=== PATIENT | male | born 1975 | race Caucasian/White ===

== ENCOUNTER 2019-12-04 17:46 | Emergency (ER) | payer SELFPAY ==
[2019-12-04 17:49] VITALS: BP 147/85; PULSE 107; RESP 26; TEMP 38.1; O2SAT 97; BMI 28.1
--- NOTE | 2019-12-04 18:00 | XRR_ITS ---
PROCEDURE INFORMATION: Exam: XR Chest, 1 View Exam date and time: 12/04/2019 6:21 PM Age: 44 years old Clinical indication: Fever TECHNIQUE: Imaging protocol: XR of the chest Views: 1 view. COMPARISON: CR Chest 1 [place] [id number] 01/09/2013 3:03 PM FINDINGS: Lungs: There are some increased interstitial markings present in the left lower hemithorax, findings that could represent a left basilar atelectasis or pneumonitis. Pleural space: Unremarkable. No pleural effusion. No pneumothorax. Heart/Mediastinum: Unremarkable. No cardiomegaly. Bones/joints: Unremarkable. XR/XR chest 1V portable [id number] IMPRESSION: Increased linear opacities in the left lower hemithorax may represent left basilar atelectasis versus pneumonitis.
[2019-12-04 18:02] VITALS: BP 122/71; PULSE 91; RESP 18; O2SAT 99
--- NOTE | 2019-12-04 18:02 | ED_ITS ---
HPI - Fever General: Chief Complaint: Fever Stated Complaint: fever Time Seen by Provider: 12/04/19 18:00 Source: patient Mode of arrival: ambulatory Limitations: no limitations History of Present Illness: HPI Narrative: Patient presents with symptoms for 6 days. Patient has little cough some sinus drainage chills and a low-grade fever. Patient has taken care of himself for viral respiratory infection for the last 6 days with minimal to no relief. Patient denies any shortness of breath at this time. Patient was concerned he may have a tickborne illness due to the fact he has [place] and has picked off various ticks. Patient appears well. Patient appears in no pain. Patient is febrile at 100.5 in the emergency department. MD elicited complaint: fever Associated symptoms: Reports chills Review of Systems General: Reports: 10 or more systems reviewed and unremarkable except in HPI and below Const: Reports: fever(s), chills and body aches ENMT: Reports: nasal discharge Resp: Reports: non-productive cough Physical Exam Const: COMMON NORMALS: no acute distress and patient oriented x3 GENERAL APPEARANCE: cooperative HENMT: COMMON NORMALS: normocephalic, TM's normal bilaterally and Normal external nose present HEAD & SCALP: normal to inspection and normocephalic NOSE: Normal external nose present TYMPANIC MEMBRANE: TM's normal bilaterally MOUTH: Normal oral and palatal mucosa present THROAT: posterior oropharynx normal Eye: GENERAL EYE: appearance normal, both eyes and all related structures Neck/C-Spine: COMMON NORMALS: full ROM Lymph: LYMPHATIC: no lymphadenopathy noted Chest: COMMONS NORMALS: normal inspection of the chest Resp: COMMON NORMALS: normal respiratory effort EFFORT & INSPECTION: Yes able to speak in complete sentences Cardio: COMMON NORMALS: regular rate and regular rhythm RATE: regular rate RHYTHM: regular rhythm GI: COMMON NORMALS: non-tender : COMMON NORMALS: Yes no CVA tenderness BLADDER/KIDNEY EXAM: Yes no CVA tenderness Back/Pelvis: COMMON NORMALS: no CVA tenderness and thoracic and lumbar spine normal to inspection Extremity: COMMON NORMALS: normal to inspection Neuro: COMMON NORMALS: patient oriented x3 and moves all extremities Psych: COMMON NORMALS: mental status grossly normal and cooperative Skin: COMMON NORMALS: no rashes or lesions noted GENERAL SKIN EXAM: no rashes or lesions noted Course Vital Signs: Vital signs: Vital Signs Temperature 100.5 F H 12/04/19 17:49 Pulse Rate 88 12/04/19 18:54 Respiratory Rate 18 12/04/19 18:54 Blood Pressure 122/71 12/04/19 18:54 Pulse Oximetry 98 12/04/19 18:54 MDM - Fever MDM Narrative: Medical decision making narrative: 44-year-old male comes in today with fever and general complaints for the last 6 days. Patient appears mildly unwell. Respirations are even lungs are clear to auscultation. Abdomen soft nontender. Skin is warm and dry. Patient is moving oxygen well with that SaO2 of 98% on room air. Differential diagnosis includes but not limited to viral infection, pneumonia, urinary tract infection, tickborne illness. CBC was normal. Lactate was normal. CMP was insignificant. Outstanding labs will be a tick panel and a COVID-19 testing. Strep and flu were both negative. Chest x- ray noted patchy infiltrate to the left lower lung. Reviewed exam with patient recommended treatment for pneumonia with doxycycline. Recommended continue quarantine for 4 more days and as long as patient is fever free per recent CDC recommendations. Patient reports understanding of care plan and need for follow-up. Lab Data: Labs: Lab Results 12/04/19 12/04/19 12/04/19 Range/Units 18:36 18:36 18:38 WBC 8.8 (4.0-10.0) 10^3/ uL RBC 5.36 H (4.1-5.3) 10^6/u L Hgb 14.1 (11.7-16.6) g/dL Hct 44.1 (42.0-52.0) % MCV 82.3 (80-94) fL MCH 26.3 L (28.0-34.0) pg MCHC 32.0 (30.0-36.0) g/dL RDW 15.2 H (12.1-15.1) % Plt Count 225 (130-400) 10^3/c mm MPV 9.8 (7.4-10.4) fL Lymph % (Auto) Not Reportable [place] % (Auto) Not Reportable Lymph # (Auto) Not Reportable [place] # (Auto) Not Reportable Nucleated RBC % (a uto) 0 % Total Counted 100 (0-100) Atypical Lymphs % 9.0 H (0-5) % Absolute Neutrophi ls 4.2 (1.4-6.5) 10^3/c mm Segmented Neutroph ils 47 % Abs Segm Neuts (Ma n) 4.1 (1.6-7.1) 10/cmm Band Neutrophils 1.0 % Abs Band Neuts (Ma n) 0.1 (0.0-1.2) 10^3/c mm Absolute Lymphocyt es 3.9 H (1.2-3.4) 10^3/c mm Lymphocytes (Manua l) 35 % Monocytes (Manual) 7.0 % Absolute Monocytes 0.6 (0.1-0.6) 10^3/c mm Eosinophils (Manua l) 1 % Absolute Eosinophi ls 0.0 (0.0-0.7) 10^3/c mm Nucleated RBCs # 0.0 /100WBC Platelet Estimate Normal (Normal) Sodium Potassium Chloride Carbon Dioxide Anion Gap BUN Creatinine GFR Calculation Glucose Calculated Osmolal ity Lactic Acid Lactate (0.5-2.2) mmol/L Calcium Total Bilirubin AST ALT Alkaline Phosphata se Total Protein Albumin Globulin Urine Color (Yellow) Urine Appearance (CLEAR) Urine pH (5-7) Ur Specific Gravit y (1.005-1.030) Urine Protein (Negative) Urine Glucose (UA) (Normal) Urine Ketones (Negative) Urine Blood (Negative) Urine Nitrate (Negative) Urine Bilirubin (NEGATIVE) Urine Urobilinogen (Negative) mg/dL Ur Leukocyte Cara ase (Negative) Influenza Type A A g Negative (Negative) Influenza Type B A g Negative (Negative) Group A Strep Rapi d Negative (Negative) 12/04/19 12/04/19 12/04/19 Range/Units 18:38 18:38 19:35 WBC (4.0-10.0) 10^3/ uL RBC (4.1-5.3) 10^6/u L Hgb (11.7-16.6) g/dL Hct (42.0-52.0) % MCV (80-94) fL MCH (28.0-34.0) pg MCHC (30.0-36.0) g/dL RDW (12.1-15.1) % Plt Count (130-400) 10^3/c mm MPV (7.4-10.4) fL Lymph % (Auto) [place] % (Auto) Lymph # (Auto) [place] # (Auto) Nucleated RBC % (a uto) % Total Counted (0-100) Atypical Lymphs % (0-5) % Absolute Neutrophi ls (1.4-6.5) 10^3/c mm Segmented Neutroph ils % Abs Segm Neuts (Ma n) (1.6-7.1) 10/cmm Band Neutrophils % Abs Band Neuts (Ma n) (0.0-1.2) 10^3/c mm Absolute Lymphocyt es (1.2-3.4) 10^3/c mm Lymphocytes (Manua l) % Monocytes (Manual) % Absolute Monocytes (0.1-0.6) 10^3/c mm Eosinophils (Manua l) % Absolute Eosinophi ls (0.0-0.7) 10^3/c mm Nucleated RBCs # /100WBC Platelet Estimate (Normal) Sodium Cancelled 133 L Potassium Cancelled 4.3 Chloride Cancelled 98 Carbon Dioxide Cancelled 23 Anion Gap Cancelled 16.3 BUN Cancelled 12 Creatinine Cancelled 0.8 GFR Calculation Cancelled 106.0 Glucose Cancelled 98 Calculated Osmolal ity Cancelled 272 L Lactic Acid Cancelled Lactate (0.5-2.2) mmol/L Calcium Cancelled 8.8 Total Bilirubin Cancelled 0.2 AST Cancelled 17 ALT Cancelled 23 Alkaline Phosphata se Cancelled 57 Total Protein Cancelled 7.1 Albumin Cancelled 4.0 Globulin Cancelled 3.1 Urine Color (Yellow) Urine Appearance (CLEAR) Urine pH (5-7) Ur Specific Gravit y (1.005-1.030) Urine Protein (Negative) Urine Glucose (UA) (Normal) Urine Ketones (Negative) Urine Blood (Negative) Urine Nitrate (Negative) Urine Bilirubin (NEGATIVE) Urine Urobilinogen (Negative) mg/dL Ur Leukocyte Cara ase (Negative) Influenza Type A A g (Negative) Influenza Type B A g (Negative) Group A Strep Rapi d (Negative) 12/04/19 12/04/19 Range/Units 19:35 19:48 WBC (4.0-10.0) 10^3/ uL RBC (4.1-5.3) 10^6/u L Hgb (11.7-16.6) g/dL Hct (42.0-52.0) % MCV (80-94) fL MCH (28.0-34.0) pg MCHC (30.0-36.0) g/dL RDW (12.1-15.1) % Plt Count (130-400) 10^3/c mm MPV (7.4-10.4) fL Lymph % (Auto) [place] % (Auto) Lymph # (Auto) [place] # (Auto) Nucleated RBC % (a uto) % Total Counted (0-100) Atypical Lymphs % (0-5) % Absolute Neutrophi ls (1.4-6.5) 10^3/c mm Segmented Neutroph ils % Abs Segm Neuts (Ma n) (1.6-7.1) 10/cmm Band Neutrophils % Abs Band Neuts (Ma n) (0.0-1.2) 10^3/c mm Absolute Lymphocyt es (1.2-3.4) 10^3/c mm Lymphocytes (Manua l) % Monocytes (Manual) % Absolute Monocytes (0.1-0.6) 10^3/c mm Eosinophils (Manua l) % Absolute Eosinophi ls (0.0-0.7) 10^3/c mm Nucleated RBCs # /100WBC Platelet Estimate (Normal) Sodium Potassium Chloride Carbon Dioxide Anion Gap BUN Creatinine GFR Calculation Glucose Calculated Osmolal ity Lactic Acid Lactate 1.1 (0.5-2.2) mmol/L Calcium Total Bilirubin AST ALT Alkaline Phosphata se Total Protein Albumin Globulin Urine Color Yellow (Yellow) Urine Appearance Clear (CLEAR) Urine pH 7 (5-7) Ur Specific Gravit y 1.010 (1.005-1.030) Urine Protein Neg (Negative) Urine Glucose (UA) Norm (Normal) Urine Ketones Negative (Negative) Urine Blood Neg (Negative) Urine Nitrate Negative (Negative) Urine Bilirubin Neg (NEGATIVE) Urine Urobilinogen 1 H (Negative) mg/dL Ur Leukocyte Cara ase Negative (Negative) Influenza Type A A g (Negative) Influenza Type B A g (Negative) Group A Strep Rapi d (Negative) Discharge Plan Discharge Patient Disposition: Home Clinical Impression: Left lower lobe pneumonia Qualifiers: Pneumonia type: due to unspecified organism Qualified Code(s): J18.9 - Pneumonia, unspecified organism Condition: Stable Prescriptions: New doxycycline hyclate 100 mg capsule 100 mg PO BID 14 Days Qty: 28 RF: 0 Discharge Orders: Discharge Order (Routine); Ordered 12/04/19 Ordered By: Abel Crowley Discharge Diet: Usual diet Discharge Activity: Increase activity as tolerated Patient Instructions: Community-acquired Pneumonia (ED) Activity Restrictions/Additional Instructions: Drink plenty of fluids. Self quarantine until COVID results are are reported to you. It is recommended to quarantine for at least 10 days after onset of symptoms until you are fever free for 24 hours without medication use. Tick p alicia will take 5 to 7 days for results. Use acetaminophen and ibuprofen for pain and fever. Drink plenty of fluids. Follow-up with primary care as needed. Return to the emergency room for worsening difficulty breathing or new concerns. Coding Level of Care Code ED Retail Service Specialist for Dariela Alvarez Exam Comprehensive
[2019-12-04 18:51] LABS: Hematocrit 44.1 % (42.0-52.0); Hemoglobin 14.1 g/dL (11.7-16.6); Mean Corpuscular Hemoglobin 26.3 pg (28.0-34.0); Mean Corpuscular Volume 82.3 fL (80-94); Mean Platelet Volume 9.8 fL (7.4-10.4); Nucleated Red Blood Cells % 0 %; Platelet Count 225 10^3/cmm (130-400); Red Blood Count 5.36 10^6/uL (4.1-5.3); Red Cell Distribution Width 15.2 % (12.1-15.1); White Blood Count 8.8 10^3/uL (4.0-10.0)
[2019-12-04 18:54] VITALS: BP 122/71; PULSE 88; RESP 18; O2SAT 98
[2019-12-04] MEDS: ibuprofen 200 mg Tablet 400 MG PO (18:59)
--- NOTE | 2019-12-04 19:02 | PC.NURSE ---
Report received from KARLOS Hunter and care transferred to KARLOS Narayanan
[2019-12-04 19:23] LABS: Slide Review Slide Review Perform
[2019-12-04 19:29] LABS: Absolute Neutrophil 4.2 10^3/cmm (1.4-6.5); Absolute Segmented Neutrophil 4.1 10/cmm (1.6-7.1); Band Neutrophils Absolute 0.1 10^3/cmm (0.0-1.2); Eosinophils 1 %; Lymphocytes 35 %; Lymphocytes Absolute 3.9 10^3/cmm (1.2-3.4); Monocytes Absolute 0.6 10^3/cmm (0.1-0.6); Platelet Estimate Normal (Normal); Segmented Neutrophils 47 %; Total Cells Counted 100 (0-100)
[2019-12-04 19:42] LABS: Rapid Strep A Test Negative (Negative)
[2019-12-04 19:54] LABS: Influenza A by IFA Negative (Negative); Influenza B by IFA Negative (Negative)
[2019-12-04 20:01] LABS: Add Urine Microscopic? NO
[2019-12-04 20:07] LABS: Bilirubin Urine Neg (NEGATIVE); Blood Urine Neg (Negative); Glucose Urine UA Norm (Normal); Ketones Urine Negative (Negative); Leukocyte Esterase Urine Negative (Negative); Nitrate Urine Negative (Negative); Protein Urine Neg (Negative); Urine Appearance Clear (CLEAR); Urine Color Yellow (Yellow); Urobilinogen Urine 1 mg/dL (Negative); pH Urine 7 (5-7)
[2019-12-04 20:22] LABS: Alanine Aminotransferase 23 U/L (0-41); Alkaline Phosphatase 57 IU/L (40-130); Anion Gap 16.3 (5-19); Aspartate Amino Transferase 17 U/L (0-40); Blood Urea Nitrogen 12 mg/dL (6-20); Calcium 8.8 mg/dL (8.5-10.5); Carbon Dioxide 23 mmol/L (22-29); Chloride 98 mmol/L (98-107); Globulin 3.1 g/dL (1.3-4.6); Glucose 98 mg/dL (65-115); Osmolality Calculated 272 mOsm/kg (285-295); Potassium 4.3 mmol/L (3.5-5.1); Sodium 133 mmol/L (136-145); Total Bilirubin 0.2 mg/dL (0.15-1.2); Total Protein 7.1 g/dL (6.6-8.7)
[2019-12-04 20:23] LABS: Lactate (Lactic Acid level) 1.1 mmol/L (0.5-2.2)
[2019-12-04 20:59] VITALS: PULSE 79; RESP 15; O2SAT 97
[2019-12-04] MEDS: doxycycline 100 mg Tablet PO (20:59)
[2019-12-04 21:00] VITALS: BP 122/78; PULSE 78; RESP 14; O2SAT 96
[2019-12-04 21:56] LABS: Reflex Lactate Order REFLEX LACTIC ORDERD
--- NOTE | 2019-12-06 03:23 | PC.NURSE ---
Advised Dr. Munson of positive blood culture of gram + cocci. Dr. Munson reviewed patient visit and advised to wait for final blood culture result before taking further action
[2019-12-06 15:20] LABS: Quest SARS-CoV-2 RNA NOT DETECTED (NOT DETECTED)
[2019-12-07 12:15] LABS: Lyme AB Screen <0.90 index
[2019-12-09 17:01] LABS: E. Chaffeensis AB IGG <1:64; E. Chaffeensis AB IGM <1:20
[2019-12-09 17:29] LABS: RMSF IGG NOT DETECTED; RMSF IGM NOT DETECTED
== END 2019-12-04 20:58 | disposition home or self-care (01) ==
PROVIDERS: Emergency Provider Nurse Practitioner Family
DX: J18.9 Pneumonia, unspecified organism (principal)
CPT/HCPCS: 12345; 71045; 80053; 81003; 83605; 85007; 85025; 86618; 86666; 86757; 87040; 87081; 87205; 87635; 87804; 87880; 99284

== ENCOUNTER 2021-01-05 09:14 | Emergency (ER) | payer SELFPAY ==
[2021-01-05 09:40] VITALS: BP 135/89; PULSE 82; RESP 16; TEMP 36.7; O2SAT 99; BMI 28.4
[2021-01-05 09:53] VITALS: BP 135/89; PULSE 82; O2SAT 99
--- NOTE | 2021-01-05 10:09 | ED_ITS ---
HPI - Wound/Laceration General: Chief Complaint: Wound/Laceration Stated Complaint: mouth blisters Time Seen by Provider: 01/05/21 09:20 History of Present Illness: HPI narrative: Patient is a 45-year-old male who comes to the ED with dental pain. Patient says about 10 days ago he was brushing his teeth and cut his gums on the inside upper right molars. Since then he has had continued gingival swelling and pain in the upper right back jaw. Patient saw PCP yesterday and was put on a prescription of clindamycin to help with dental infection. Patient has not picked up his antibiotic prescription. He he states he will be calling a dentist to get an appointment set up. Associated symptoms: Denies chills, fever(s), nausea or vomiting Review of Systems Const: Denies: fever(s), chills or fatigue Eyes: Denies: change in vision or eye discomfort ENMT: Reports: dental pain; Denies: throat pain, odynophagia, nasal discharge or nasal congestion Card: Denies: chest pain, palpitations, edema, swelling of feet/ankles, dyspnea on exertion or orthopnea Resp: Denies: dyspnea, productive cough or non-productive cough GI: Denies: abdominal pain, nausea, vomiting, diarrhea, constipation or hematochezia : Denies: flank pain, difficulty urinating, dysuria or hematuria Musc: Denies: neck pain, back pain or extremity swelling Skin/Breast: Denies: rash or new lesions Neuro: Denies: headache(s), numbness in extremities or weakness in extremities PFS ED PFSH: Social History Smoking and tobacco status: current every day smoker Physical Exam Const: COMMON NORMALS: no acute distress, patient oriented x3 and alert GENERAL APPEARANCE: cooperative and comfortable HENMT: COMMON NORMALS: normocephalic HEAD & SCALP: normocephalic MOUTH: Normal oral and palatal mucosa present TEETH & GINGIVA: Yes gingiva abnormal (gingival edema around the upper right molars) edematous and tender THROAT: posterior oropharynx normal and uvula midline Eye: COMMON NORMALS: Equal, round and reactive pupils present PUPIL: Yes Equal, round and reactive pupils present Neck/C-Spine: COMMON NORMALS: supple GENERAL: Yes normal visual inspection Resp: COMMON NORMALS: normal respiratory effort, No retractions, No use of accessory muscles and clear to auscultation bilaterally AUSCULTATION: clear to auscultation bilaterally Cardio: COMMON NORMALS: regular rate, regular rhythm, S1 normal heart sound present, S2 normal heart sound present, No gallops present (Cardio), No clicks present (Cardio), No murmurs present (Cardio) and Peripheral pulses 2+ thr oughout RATE: regular rate RHYTHM: regular rhythm HEART SOUNDS: S1 normal heart sound present and S2 normal heart sound present PERIPHERAL PULSES: Peripheral pulses 2+ throughout GI: COMMON NORMALS: Normal to inspection, nondistended, normoactive bowel sounds present, Soft to palpation, non-tender and no masses PALPATION: Yes Soft to palpation : COMMON NORMALS: Yes no CVA tenderness BLADDER/KIDNEY EXAM: Yes no CVA tenderness Back/Pelvis: COMMON NORMALS: no CVA tenderness Extremity: COMMON NORMALS: normal to inspection Neuro: COMMON NORMALS: patient oriented x3 and moves all extremities SENSORIUM/ORIENTATION: Yes alert Skin: GENERAL SKIN EXAM: dry skin Course Vital Signs: Vital signs: Vital Signs Temperature 98.1 F 01/05/21 09:40 Pulse Rate 82 01/05/21 09:53 Respiratory Rate 16 01/05/21 09:40 Blood Pressure 135/89 01/05/21 09:53 Pulse Oximetry 99 01/05/21 09:53 MDM - Wound/Laceration MDM Narrative: Medical decision making narrative: Patient is a 45-year-old male comes to the ED with some dental pain and gingival edema. Vitals are stable and patient appears nontoxic. He was seen by his PCP yesterday and put on a prescription for clindamycin. He has not picked up his prescription yet. Exam showed some gingival edema and tenderness in the upper right molar region. Patient diagnosed with dental infection and told to get his clindamycin prescription filled today and start taking it. He was also told to contact a dentist to set up an appointment with him for reevaluation. Return ED precautions given. Patient understood and agree with plan. Discharge Plan Discharge Patient Disposition: Home Clinical Impression: Dental infection Condition: Stable Prescriptions: No Action clindamycin HCl 150 mg capsule 450 mg PO TID 7 Days Qty: 63 RF: 0 Discharge Orders: Discharge ED (Routine); Ordered 01/05/21 Ordered By: Dante Wolfe Referrals: Kevin Medina MD [Primary Care Provider] - Discharge Diet: Regular Discharge Activity: Resume usual activity Patient Instructions: Dental Abscess (ED), Dental Caries (ED) Activity Restrictions/Additional Instructions: Follow-up with medical provider as directed. Contact a dentist and set up an appoint with them for further evaluation. Make sure to fill your previously prescribed prescription for antibiotic. take medications as prescribed. Take [id number] Tylenol or Motrin per bottle instruction for pain. Return to the ER or your medical provider if condition worsens. Please read and understand discharge instructions. Thank you for choosing [facility] for your healthcare needs today. Please realize this is an emergency room and that we are providing you with a medical screening exam and this may not be complete and all inclusive of all the testing and or work up that you may need to determine your ailment or severity of your illness. It is very important that you follow up as instructed or that you return to the Emergency Department should you have concerns or if your condition changes or worsens in any way. Coding Level of Care Code ED Tool Design Engineer for Dariela Fwd Exam Comprehensive
[2021-01-05] MEDS: HYDROcodone-acetaminophen 7.5-325 mg Tablet 1 TAB PO (10:40)
== END 2021-01-05 10:48 | disposition home or self-care (01) ==
PROVIDERS: Emergency Provider Physician Assistant; PCP Family Medicine
DX: K04.7 Periapical abscess without sinus (principal); F17.210 Nicotine dependence, cigarettes, uncomplicated
CPT/HCPCS: 99283

== ENCOUNTER 2021-12-16 20:27 | Emergency (ER) | payer SELFPAY ==
--- NOTE | 2021-12-16 20:32 | USR_ITS ---
PROCEDURE INFORMATION: Exam: US Scrotum and US Duplex Artery and Vein, Scrotum, Complete Exam date and time: 12/16/2021 9:05 PM Age: 46 years old Clinical indication: Scrotum pain; Additional info: Testicle pain TECHNIQUE: Imaging protocol: Real-time ultrasound of the scrotum. Real-time duplex ultrasound scan of the arterial and venous flow of the scrotum with B-mode, color Doppler flow and spectral waveform analysis. Complete exam. Duplex images required to evaluate vascular conditions. COMPARISON: No relevant prior studies available. FINDINGS: Right: The right testicle measures 48 x 27 x 36 mm, estimated volume 24.6 cc. No visible intratesticular mass. Duplex Doppler evaluation, with color flow and spectral waveform analysis, demonstrates intratesticular arterial and venous blood flow. 10 x 5 x 5 mm cyst in the head of the right epididymis. The right epididymis appears mildly enlarged and shows slightly increased blood flow relative to the left epididymis. While not conclusive, this appearance suggests possible right epididymitis. Please correlate clinically. There is a small amount of right scrotal fluid. Left: The left testicle measures 48 x 32 x 34 mm, estimated volume 27.1 cc. No visible intratesticular mass. Duplex Doppler evaluation, with color flow and spectral waveform analysis, demonstrates intratesticular arterial and venous blood flow. The left epididymis is normal in size and appearance. There is a small amount of left scrotal fluid. US/US scrotum [id number] IMPRESSION: 1. Technologist notes somewhat limited exam, as patient was unable to tolerate exam due to pain. 2. Findings that raise suspicion for possible right epididymitis, see above discussion. 3. No evidence for torsion by Doppler ultrasound. 4. Small bilateral hydroceles. 5. Other details discussed above.
[2021-12-16 20:38] VITALS: BP 140/87; PULSE 96; RESP 16; TEMP 37.5; O2SAT 99
--- NOTE | 2021-12-16 21:35 | ED_ITS ---
HPI - Male Genitourinary General: Chief complaint: Urogenital-Male Stated complaint: Testical Pain Time Seen by Provider: 12/16/21 21:16 Source: patient Mode of arrival: ambulatory Limitations: no limitations History of Present Illness: 46-year-old male who states has been having right testicle pain and swelling over the last 7 days. He states his pain is been worsening and sharp in nature rates his pain a 7 out of 10 much worse with movement had some dysuria as well. Denies any penile discharge denies any fever denies any abdominal pain or vomiting. Associated symptoms: Deny nausea or vomiting Review of Systems Const: Denies: fever(s), chills, body aches or change in appetite Eyes: Denies: blurry vision or eye discomfort ENMT: Denies: throat pain or dental pain Card: Denies: chest pain Resp: Denies: dyspnea GI: Denies: abdominal pain, nausea, vomiting or diarrhea : Reports: testicular pain and scrotal swelling Musc: Denies: neck pain or back pain Skin/Breast: Denies: rash Neuro: Denies: headache(s) Psych: Denies: depression Axel/Lymph: Denies: easy bruising All/Imm: Denies: urticaria PFSH ED PFSH: Medical History (Updated 12/16/21 @ 22:34 by Lissa Clement MD) No pertinent past medical history Social History Smoking and tobacco status: current every day smoker Physical Exam Const: COMMON NORMALS: no acute distress, patient oriented x3 and healthy appearing HENMT: COMMON NORMALS: normocephalic and atraumatic HEAD & SCALP: normocephalic and atraumatic Eye: COMMON NORMALS: conjunctivae normal CONJUNCTIVA: Yes conjunctivae normal Neck/C-Spine: COMMON NORMALS: full ROM and supple Chest: COMMONS NORMALS: normal inspection of the chest Resp: COMMON NORMALS: normal respiratory effort Cardio: COMMON NORMALS: regular rate, regular rhythm and No murmurs present (Cardio) RATE: regular rate RHYTHM: regular rhythm GI: COMMON NORMALS: Normal to inspection, nondistended, normoactive bowel sounds present, Soft to palpation, non-tender and no masses INSPECTION: Yes normal to inspection PALPATION: Yes Soft to palpation : OTHER: Swelling and tenderness noticed to right testicle Extremity: COMMON NORMALS: normal to inspection and full ROM Neuro: COMMON NORMALS: patient oriented x3, moves all extremities and no focal motor deficits Psych: COMMON NORMALS: mental status grossly normal, Normal thought process present and cooperative THOUGHT PROCESS: Normal thought process present Skin: COMMON NORMALS: no rashes or lesions noted and no wounds GENERAL SKIN EXAM: no rashes or lesions noted Course Vital Signs: Vital signs: Vital Signs Temperature 99.5 F 12/16/21 20:38 Pulse Rate 96 12/16/21 20:38 Respiratory Rate 16 12/16/21 20:38 Blood Pressure 140/87 12/16/21 20:38 Pulse Oximetry 99 12/16/21 20:38 Oxygen Delivery Me thod 12/16/21 20:38 MDM - Male Medical Decision Making Patient presents here with testicle swelling and pain ultrasound shows likely epididymitis he has no signs of torsion he had good blood flow we will start him on antibiotics along with pain meds get him follow-up with urology he is return if worsening he understands agrees to plan. Lab Data Radiology Impressions Scrotum Ultrasound 12/16/21 20:32 IMPRESSION: 1. Technologist notes somewhat limited exam, as patient was unable to tolerate exam due to pain. 2. Findings that raise suspicion for possible right epididymitis, see above discussion. 3. No evidence for torsion by Doppler ultrasound. 4. Small bilateral hydroceles. 5. Other details discussed above. Discharge Plan Discharge Patient Disposition: Home Clinical Impression: Epididymitis Condition: Stable Prescriptions: New hydrocodone-acetaminophen 5-325 mg tablet 1 tab PO Q6H PRN (Reason: pain) Qty: 14 0RF doxycycline hyclate 100 mg capsule 100 mg PO BID 10 Days Qty: 20 0RF No Action clindamycin HCl 150 mg capsule 450 mg PO TID 7 Days Qty: 63 0RF Discharge Orders: Discharge ED (Routine); Ordered 12/16/21 Ordered By: Lissa Clement Referrals: Devin Gutierrez MD [Physician] - 1-3 days Kevin Medina MD [Primary Care Provider] - Discharge Diet: Advance as tolerated Discharge Activity: Resume usual activity Patient Instructions: Epididymitis (ED), Opioid Safety Coding Level of Care Code ED Entertainment & Media Correspondent for Chg Fwd Exam Comprehensive
[2021-12-16] MEDS: ondansetron 2 mg/ML SDV 2 mL 4 MG IM (21:54)
[2021-12-16] MEDS: HYDROmorphone 1 mg/mL INJ 1 mL IM (21:58)
[2021-12-16 22:42] LABS: Add Urine Microscopic? YES; Bilirubin Urine Neg (Negative); Blood Urine 2+ (Negative); Glucose Urine UA Norm (Normal); Ketones Urine 1+ (Negative); Leukocyte Esterase Urine Negative (Negative); Nitrate Urine Negative (Negative); Protein Urine Neg (Negative); Urine Appearance Clear (CLEAR); Urine Color Yellow (Yellow); Urobilinogen Urine Neg (Negative); pH Urine 5 (5-7)
[2021-12-16 22:43] LABS: Squamous Epithelial Cell Urine 0-4 /hpf (0-5)
[2021-12-16 22:44] LABS: Add Urine Culture? No; Bacteria Urine TRACE /hpf
[2021-12-16 23:10] VITALS: BP 126/87; PULSE 90; RESP 14; O2SAT 96
[2021-12-16] MEDS: doxycycline 100 mg Tablet PO (23:18)
[2021-12-16] MEDS: HYDROcodone-acetaminophen 5-325 mg Tablet 1 TAB PO (23:19)
[2021-12-16 23:46] VITALS: BP 126/87; PULSE 90; RESP 14; O2SAT 96
--- NOTE | 2021-12-18 16:31 | DCPLANNER ---
Addendum entered by Deneen Hartman 12/21/21 16:42: Patient had a follow up appointment scheduled with urology - appointment cancelled. Original Note: email manager had message to schedule a follow up appointment for patient with urology. Case manger sent patients information to the front office staff at urology. Patients information will be printed and reviewed. Clinic will call patient with appointment information.
== END 2021-12-16 23:50 | disposition home or self-care (01) ==
PROVIDERS: Emergency Provider Emergency Medicine; PCP Family Medicine
DX: N45.1 Epididymitis (principal); F17.210 Nicotine dependence, cigarettes, uncomplicated
CPT/HCPCS: 76870; 81001; 96372; 99284; J0696; J1170; J2405

== ENCOUNTER 2023-05-27 12:45 | Emergency (ER) | payer SELFPAY ==
[2023-05-27 13:14] VITALS: BP 153/95; PULSE 80; RESP 16; TEMP 36.7; O2SAT 99; BMI 26.6
--- NOTE | 2023-05-27 15:35 | ED_ITS ---
HPI - Extremity Problem General: Chief complaint: Extremity Injury, Lower Stated complaint: leg pain, Right Time Seen by Provider: 05/27/23 15:13 [facility] ED PFSH: Medical History (Updated 12/24/21 @ 00:01 by DEA Martinez) No pertinent past medical history Social History Smoking and tobacco/nicotine status: current every day tobacco/nicotine user Course Vital Signs: Vital signs: Vital Signs Temperature 98.0 F 05/27/23 13:14 Pulse Rate 80 05/27/23 13:14 Respiratory Rate 16 05/27/23 13:14 Blood Pressure 153/95 05/27/23 13:14 Pulse Oximetry 99 05/27/23 13:14 Oxygen Delivery Me thod Room Air 05/27/23 13:14 Discharge Plan Discharge Condition: Stable Prescriptions: No Action clindamycin HCl 150 mg capsule 450 mg PO TID 7 Days Qty: 63 0RF hydrocodone-acetaminophen 5-325 mg tablet 1 tab PO Q6H PRN (Reason: pain) Qty: 14 0RF Referrals: Kevin Medina MD [Primary Care Provider] - Coding Level of Care Code 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
[2023-05-27] MEDS: dexamethasone 10 mg/mL INJ IM (15:53)
[2023-05-27] MEDS: ketorolac 30 mg/mL INJ IVP (15:53)
[2023-05-27] MEDS: orphenadrine 30 mg/mL Inj 2 mL 60 MG IVP (15:53)
--- NOTE | 2023-05-27 17:34 | ED_ITS ---
HPI - Back Pain/Injury General: Chief Complaint: Extremity Injury, Lower Stated Complaint: leg pain, Right Time Seen by Provider: 05/27/23 15:13 Source: patient Mode of arrival: ambulatory History of Present Illness: 47-year-old male presents emergency room planing of back pain with pain radiating down the right leg from the buttock lateral thigh down to the anterior lower leg and ankle. He has noticed she is having difficulty with dorsiflexion of the ankle. No direct injury to the back he thinks this began after he was doing some lifting and twisting at work. MD elicited complaint: back pain Pertinent past history: prior back pain Onset (ago): day(s) Timing: constant Similar Symptoms Previously: Yes Quality: sharp Location: lumbar spine Radiation: right upper leg and right leg below the knee Exacerbating factors: sitting upright and walking Relieving factors: supine Context: while lifting Associated symptoms: Deny abdominal pain, arthralgias, chills, change in bowel habits, difficulty walking, dysuria, fatigue, fecal incontinence, fever(s), hematuria, myalgias, nausea, numbness, syncope, tingling/numbness/burning, urinary frequency, urinary urgency, vomiting or weakness Work related injury: Yes Review of Systems Const: Denies: fever(s), chills or fatigue Card: Denies: chest pain or syncope Resp: Denies: dyspnea GI: Denies: abdominal pain, nausea, vomiting, fecal incontinence or change in bowel habits : Denies: dysuria, urinary frequency, urinary urgency or hematuria Musc: Reports: back pain and extremity pain; Denies: neck pain Skin/Breast: Denies: rash Neuro: Denies: difficulty walking [facility] ED PFSH: Medical History No pertinent past medical history Social History Smoking and tobacco/nicotine status: current every day tobacco/nicotine user Physical Exam Const: COMMON NORMALS: no acute distress GENERAL APPEARANCE: cooperative and comfortable ORIENTATION/CONSCIOUSNESS: Yes awake, Yes oriented to person, Yes oriented to place and Yes oriented to time HENMT: COMMON NORMALS: normocephalic, atraumatic and hearing grossly normal bilaterally HEAD & SCALP: normocephalic and atraumatic Resp: COMMON NORMALS: normal respiratory effort, No retractions, No use of accessory muscles and clear to auscultation bilaterally AUSCULTATION: clear to auscultation bilaterally Cardio: COMMON NORMALS: regular rate, regular rhythm and No murmurs present (Cardio) RATE: regular rate RHYTHM: regular rhythm GI: COMMON NORMALS: Soft to palpation and No hepatosplenomegaly present AUSCULTATION: Yes normoactive bowel sounds PALPATION: Yes Soft to palpation, No Tenderness to palpation present (GI), No Guarding due to palpation present (GI) and Yes No hepatosplenomegaly present Extremity: COMMON NORMALS: normal to inspection, capillary refill normal, no clubbing, cyanosis or edema, no calf tenderness and no pedal edema Neuro: SENSORIUM/ORIENTATION: Yes oriented to person, Yes oriented to place and Yes oriented to time Skin: COMMON NORMALS: no rashes or lesions noted GENERAL SKIN EXAM: no rashes or lesions noted Course Vital Signs: Vital signs: Vital Signs Temperature 98.0 F 05/27/23 13:14 Pulse Rate 80 05/27/23 13:14 Respiratory Rate 16 05/27/23 13:14 Blood Pressure 153/95 05/27/23 13:14 Pulse Oximetry 99 05/27/23 13:14 Oxygen Delivery Me thod Room Air 05/27/23 13:14 MDM - Back Pain/Injury Medical Decision Making No red flag symptoms. Deep tendon reflexes in the lower extremities normal sensation normal weakness in the dorsiflexion of the right leg. Will discharge patient home on steroid taper tizanidine and diclofenac to set up outpatient MRI and follow-up with neurosurgery return if has further problems. Medical Records I reviewed the patient's medical records. Labs I reviewed the patient's lab results. No radiology studies performed this visit Discharge Plan Discharge Patient Disposition: Home Clinical Impression: Lumbar radicular pain Condition: Stable Prescriptions: New tizanidine 4 mg tablet 4 mg PO Q6H PRN (Reason: muscle spasticity) Qty: 20 0RF Rx Instructions: do not exceed 3 doses per 24 hrs prednisone 20 mg tablet 20 mg PO TID Qty: 15 0RF Rx Instructions: 1 p.o. 3 times daily x3 days, 1 p.o. twice daily x2 days, 1 p.o. daily x2 days diclofenac sodium 75 mg tablet,delayed release (DR/EC) 75 mg PO Q12H PRN (Reason: pain) Qty: 20 0RF No Action clindamycin HCl 150 mg capsule 450 mg PO TID 7 Days Qty: 63 0RF hydrocodone-acetaminophen 5-325 mg tablet 1 tab PO Q6H PRN (Reason: pain) Qty: 14 0RF Discharge Orders: Discharge ED (Routine); Ordered 05/27/23 Ordered By: Richard Burrows Referrals: Kevin Medina MD [Primary Care Provider] - Discharge Diet: Usual diet Discharge Activity: Increase activity as tolerated Patient Instructions: Lumbar Radiculopathy (ED), Opioid Safety, Pain Management Activity Restrictions/Additional Instructions: Thank you for choosing [facility] for your healthcare needs today. Please realize this is an emergency room and that we are providing you with a medical screening exam and this may not be complete and all inclusive of all the testing and or work up that you may need to determine your ailment or severity of your illness. It is very important that you follow up as instructed or that you return to the Emergency Department should you have concerns or if your condition changes or worsens in any way. You are seen in the emergency room for right leg radicular pain. Suspect the discomfort is due to an impinged nerve in your back putting pain radiating down your leg which is also causing the weakness in your ankle. Case management will make arrangements for you to have an outpatient MRI of your lumbar spine and a follow-up with Dr. Leal. 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
== END 2023-05-27 16:30 | disposition home or self-care (01) ==
PROVIDERS: Emergency Provider Family Medicine; PCP Family Medicine
DX: M54.16 Radiculopathy, lumbar region (principal); Z72.0 Tobacco use
CPT/HCPCS: 96372; 96374; 96375; 99284; J1100; J1885; J2360

== ENCOUNTER 2023-06-02 12:16 | Emergency (ER) | payer SELFPAY ==
[2023-06-02 12:30] VITALS: BP 156/88; PULSE 80; RESP 12; TEMP 36.7; O2SAT 98; BMI 27.1
--- NOTE | 2023-06-02 13:35 | W.ED.BACK ---
HPI - Back Pain/Injury General: Chief Complaint: Back Pain/Injury Stated Complaint: right side back pain Time Seen by Provider: 06/02/23 13:28 History of Present Illness: 47-year-old male patient comes in today with complaints of pain with numbness and tingling going down his right leg to his feet. Patient reports numbness in his toes. Patient reports that injury at work about 1 month ago where he slipped and fell. Patient was seen last week and was treated for radiculitis with steroids, anti-inflammatories, and muscle relaxer. Patient reports no significant improvement but no worsening of symptoms. Patient denies any loss of bowel or bladder control. Patient reports no fever or chills. Patient is scheduled appointment for follow-up with orthopedic customer management specialist on 14 June. Patient comes in due to not being able to work at his job and is needing an excuse. Review of Systems General: Reports: 10 or more systems reviewed and unremarkable except in HPI and below Musc: Reports: back pain [facility] ED PFSH: Medical History No pertinent past medical history Social History Smoking and tobacco/nicotine status: current every day tobacco/nicotine user Physical Exam Const: COMMON NORMALS: alert HENMT: COMMON NORMALS: normocephalic HEAD & SCALP: normocephalic Neck/C-Spine: COMMON NORMALS: full ROM Resp: COMMON NORMALS: normal respiratory effort and clear to auscultation bilaterally AUSCULTATION: clear to auscultation bilaterally Cardio: COMMON NORMALS: regular rate RATE: regular rate Back/Pelvis: SACROILIAC JOINTS: Yes SI joint(s) abnormal (Tenderness along the right sacroiliac.) SI joint details: tender to palpation Neuro: SENSORIUM/ORIENTATION: Yes alert Skin: COMMON NORMALS: turgor normal GENERAL SKIN EXAM: turgor normal Course Vital Signs: Vital signs: Vital Signs Temperature 98.1 F 06/02/23 12:30 Pulse Rate 80 06/02/23 12:30 Respiratory Rate 12 06/02/23 12:30 Blood Pressure 156/88 06/02/23 12:30 Pulse Oximetry 98 06/02/23 12:30 Oxygen Delivery Me thod Room Air 06/02/23 12:30 MDM - Back Pain/Injury Medical Decision Making 47-year-old male patient comes in today with lower back pain radiating down the right lower extremity. Patient reports no worsening of symptoms but no improvement since his last visit to the emergency department. Patient is awaiting follow-up with orthopedic spine. Patient denies any loss of bowel or bladder control. Vital signs are normal. Differential diagnosis include intervertebral disc disease, facet arthropathy, lumbar radiculopathy. No cauda equina symptoms were noted at this time. Patient does definitely have some lumbar radiculopathy and concern for impingement of the nerve pathway. Recommended continuing treatment plan and following up as scheduled. Patient was requesting work excuse until his follow-up appointment on the second. Patient was excused from work and recommended contacting Workmen's Comp. specialist for further medications and treatment plans. No radiology studies performed this visit Discharge Plan Discharge Patient Disposition: Home Clinical Impression: Lumbar radiculopathy Condition: Stable Prescriptions: No Action clindamycin HCl 150 mg capsule 450 mg PO TID 7 Days Qty: 63 0RF tizanidine 4 mg tablet 4 mg PO Q6H PRN (Reason: muscle spasticity) Qty: 20 0RF Rx Instructions: do not exceed 3 doses per 24 hrs prednisone 20 mg tablet 20 mg PO TID Qty: 15 0RF Rx Instructions: 1 p.o. 3 times daily x3 days, 1 p.o. twice daily x2 days, 1 p.o. daily x2 days diclofenac sodium 75 mg tablet,delayed release (DR/EC) 75 mg PO Q12H PRN (Reason: pain) Qty: 20 0RF hydrocodone-acetaminophen 5-325 mg tablet 1 tab PO Q6H PRN (Reason: pain) Qty: 14 0RF Discharge Orders: Discharge ED (Routine); Ordered 06/02/23 Ordered By: Abel Crowley Referrals: Kevin Medina MD [Primary Care Provider] - Discharge Diet: Usual diet Discharge Activity: Increase activity as tolerated Patient Instructions: Lumbar Radiculopathy (ED) Activity Restrictions/Additional Instructions: Try to maintain activity is much as possible. Gentle stretching and range of motion exercises. Ice and heat to the low back to help with pain and discomfort. Drink plenty of water. Follow-up with Workmen's Comp. specialist regarding further evaluation and treatment. Keep appointment as scheduled for 14 June. 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
[2023-06-02 13:54] VITALS: PULSE 76; RESP 16; O2SAT 98
== END 2023-06-02 13:55 | disposition home or self-care (01) ==
PROVIDERS: Emergency Provider Nurse Practitioner Family; PCP Family Medicine
DX: M54.16 Radiculopathy, lumbar region (principal); Z72.0 Tobacco use
CPT/HCPCS: 99281

== ENCOUNTER → 2023-07-09 08:24 | Outpatient (BNVA) | payer OTHER, SELFPAY | PROVIDERS: PCP Family Medicine; Visit Provider Orthopaedic Surgery | DX: M48.062 Spinal stenosis, lumbar region with neurogenic claudication | CPT/HCPCS: 72110 ==

== ENCOUNTER → 2023-08-13 10:23 | Outpatient (BNVA) | payer OTHER, SELFPAY | PROVIDERS: PCP Family Medicine; Visit Provider Anesthesiology Pain Medicine | DX: M47.892 Other spondylosis, cervical region (principal); M54.2 Cervicalgia; G89.29 Other chronic pain | CPT/HCPCS: 72040 ==

== ENCOUNTER 2023-09-11 14:03 | Outpatient (CLI) | payer OTHER, SELFPAY ==
--- NOTE | 2023-09-11 14:30 | MR_ITS ---
WS: [id number] MRI LUMBAR SPINE NONCONTRAST HISTORY: back pain COMPARISON: None available. TECHNIQUE: Sagittal and axial multisequence imaging is submitted. Small central disc protrusions in the cervical spine from C3-4 through C6-7. Mild straightening of the normal lumbar lordosis. No acute fractures. There is a very small amount of marrow edema along the superior endplate of L5. Marrow edema is greater on the LEFT and extends into the pedicle. There is a small amount of edema in the posterior inferior L4 vertebral body also on th e LEFT. Mild disc base narrowing and desiccation at L4-5. Conus terminates normally at L1-2 disc level. L1-L2: Normal. L2-L3: Mild disc bulging and ligamentum flavum and facet arthritis. No stenosis. L3-L4: Mild asymmetric disc bulging. Broad-based disc protrusion on the RIGHT extending from the para central location into the foramen. Osteophytic ridging is also present. Moderate facet and ligamentum flavum arthropathy. There is disc contacting the traversing RIGHT L4 nerve root and also the exiting RIGHT L3 nerve root. Mild contact on the LEFT nerve root also. L4-L5: Diffuse annular disc bulging. Disc is diffusely bulging extending into the foramina causing co mplete effacement of fat. Marked ligamentum flavum and facet arthritis. Mild subarticular recess encr oachment. Mild central and bilateral subarticular recess stenosis. Moderate to severe bilateral nabeel inal stenosis. Greater on the LEFT than the RIGHT. L5-S1: Diffuse annular disc bulging. Greater disc bulging to the RIGHT. No contact on the S1 nerve ro ots. Disc does contact the exiting RIGHT L5 nerve root and to a lesser extent the exiting LEFT L5 ner ve root. Facet joint arthritis. Fluid in the facet joints. Paravertebral soft tissues are negative. MR/MR lumbar spine wo con* [id number] IMPRESSION: 1. L4-5: Diffuse disc bulging resulting in mild central, bilateral subarticula r recess with moderate to severe bilateral foraminal stenosis, greater on the L EFT. Significant contact on the exiting nerve roots. Additional facet joint art hritis. 2. L5-S1: Disc bulging extends greatest to the RIGHT with contact on the RIGHT exiting L5 nerve root. Lesser disc contact on the exiting LEFT L5 nerve root. 3. L3-4: Asymmetric disc bulging with a broad-based protrusion on the RIGHT. D isc contacts the traversing RIGHT L4 nerve root and also the exiting RIGHT L3 n erve root. 4. Small amount of marrow edema involving the L4 and L5 endplates on the LEFT with marrow edema extending into the RIGHT pedicle. No fracture.
== END 2023-09-11 14:04 | disposition home or self-care (01) ==
LOC: RAD 14:04
PROVIDERS: PCP Family Medicine; Visit Provider Orthopaedic Surgery
DX: M54.9 Dorsalgia, unspecified (principal); M51.36 Other intervertebral disc degeneration, lumbar region; M51.37 Other intervertebral disc degeneration, lumbosacral region
CPT/HCPCS: 72148

== ENCOUNTER 2023-12-06 14:19 | Emergency (ER) | payer OTHER, SELFPAY ==
[2023-12-06 14:22] VITALS: BP 134/88; PULSE 96; RESP 18; TEMP 37.1; O2SAT 95; BMI 28.0
--- NOTE | 2023-12-06 14:29 | CT_ITS ---
WS: [id number] CT HEAD NONCONTRAST HISTORY: Left-sided facial numbness TECHNIQUE: Contiguous axial imaging performed through the brain in 2.5 mm imaging. Bone and soft tiss ue windows. Sagittal and coronal reformats reviewed. All CT scans at [facility] use at least one of these dose optimization techniques: automated exposure control; mA and/or kV adjustment per pa tient size (includes targeted exams where dose is matched to clinical indication); or iterative recon struction. DLP: 1063.48 mGy.cm COMPARISON: 01/19/2013 No acute intracranial hemorrhage, midline shift or mass effect. No atrophy or prior infarcts or herniation. Ventricles: Normal size with no hydrocephalus. Paranasal sinuses: As visualized are clear. Mastoid air cells: Well pneumatized. Calvarium and scalp: Skull is intact with no soft tissue edema or swelling. CT/CT head wo con* [id number] IMPRESSION: Negative head CT.
--- NOTE | 2023-12-06 14:29 | XR_ITS ---
WS: [id number] XR chest 1V portable [id number] REASON FOR EXAM: Chest pain FINDINGS: Chest is similar to previous examination 12/04/2019. The heart and mediastinum are within normal limits. Calcified granulomatous disease is seen in both hemithoraces. No acute pulmonary parenchymal or pleural abnormality is identified. No abnormality is seen in the le ft lower lung as Moderate degenerative spondylosis in the lower thoracic spine. XR/XR chest 1V portable [id number] IMPRESSION: Stable chest without acute abnormality.
--- NOTE | 2023-12-06 14:31 | W.ED.CHESTPA ---
HPI - Chest Pain General: Chief Complaint: Chest Pain Stated Complaint: chest pain Time Seen by Provider: 12/06/23 14:26 History of Present Illness: 48-year-old man with a history of hypertension reports to the emergency room by ambulance. He reports that he has had a stroke in the past but does not have any apparent residual deficits. He says this morning he awoke with some chest discomfort. He felt pressure in his chest. He then went out to mow his yard at which time he developed a severe chest pressure. This has since become somewhat better. No known cardiac history. No nausea or vomiting. No altered mental status. No focal motor deficits. No abdominal pain. No lower extremity swelling. He also complains of some numbness in his left face. Review of Systems Narrative: Constitutional symptoms: Negative except as documented in HPI. Skin symptoms: Negative except as documented in HPI. Eye symptoms: Negative except as documented in HPI. ENMT symptoms: Negative except as documented in HPI. Respiratory symptoms: Negative except as documented in HPI. Cardiovascular symptoms: Negative except as documented in HPI. Gastrointestinal symptoms: Negative except as documented in HPI. Genitourinary symptoms: Negative except as documented in HPI. Musculoskeletal symptoms: Negative except as documented in HPI. Neurologic symptoms: Negative except as documented in HPI. Psychiatric symptoms: Negative except as documented in HPI. Endocrine symptoms: Negative except as documented in HPI. [facility] ED PFSH: Medical History No pertinent past medical history Social History Smoking and tobacco/nicotine status: current every day tobacco/nicotine user Physical Exam Narrative: EXAM NARRATIVE: General: Alert, no acute distress. Skin: Warm, dry. Head: Normocephalic, atraumatic. Neck: Supple, trachea midline. Eye: Extraocular movements are intact. Ears, nose, mouth and throat: mucosa moist. Cardiovascular: Regular, Normal peripheral perfusion. Respiratory: Lungs are clear to auscultation, respirations are non-labored, breath sounds are equal, Symmetrical chest wall expansion. Gastrointestinal: Soft, Nontender, Non distended Musculoskeletal: Normal ROM, no deformity. Neurological: Alert and oriented, No focal neurological deficit observed. Psychiatric: Cooperative, appropriate mood & affect. Course Vital Signs: Vital signs: Vital Signs Temperature 98.7 F 12/06/23 14:22 Pulse Rate 91 12/06/23 17:37 Respiratory Rate 18 12/06/23 14:22 Blood Pressure 140/91 12/06/23 17:37 Pulse Oximetry 98 12/06/23 17:37 MDM - Chest Pain Medical Decision Making Differential diagnosis for patient with chest pain includes but is not limited to and based on the above HPI, review of systems and physical exam: Pneumonia. unstable angina. angina. Acute coronary syndrome / AR. Pulmonary embolism. Costochondritis / musculoskeletal. Pleurisy. Pericarditis. Esophageal spasm. Pancreatis. Cholecystitis. Orders placed to evaluate differential diagnosis based on the above differential, HPI and physical exam EKG: Time 1513. Rate 84. Normal sinus rhythm, No ST-T changes, no ectopy, normal VA & QRS intervals, This was reviewed and interpreted by myself the ER physician at 1515. Chest x-ray: No acute process. No infiltrate. No pneumothorax. This was reviewed and interpreted by myself the ER physician. Lab Review: Laboratory results were reviewed and interpreted by myself the emergency room physician. Mild leukocytosis with a white count of 12. Hemoglobin normal at 16. BUN and creatinine are normal at 11 and 1.0. Serial cardiac markers are negative. CT head: No acute intracranial process. no intracranial hemorrhage, no evidence of infarct. no evidence of acute fracture.This was reviewed and interpreted by myself the ER physician. HEART Pathway for Early Discharge in Acute Chest Pain from [place] on 12/06/2023 All calculations should be rechecked by clinician prior to use RESULT SUMMARY: 2 points HEART Pathway Score Low risk 0.9-1.7% 30-day MACE Repeat troponin at 3 hours and if negative, discharge home with outpatient follow-up. INPUTS: History ?> 0 = Slightly suspicious EKG ?> 0 = Normal Age ?> 1 = 45-64 Risk factors ?> 1 = 1-2 risk factors Initial troponin ?> 0 = <=ormal limit I reviewed the patient's medical record. Reexamination: Patient remained stable. No increased work of breathing. No altered mental status. No focal motor deficits. Assessment and plan: Noncardiac chest pain - Discharged home - Discussed findings and plan with patient. Answered any questions. - All laboratory values were reviewed and interpreted personally by myself, the ER physician - All imaging was reviewed and interpreted personally by myself, the ER physician. - Evaluation and treatment of this problem were appropriate in the emergency setting Lab Data 12/06/23 14:49 12/06/23 14:49 Radiology Impressions Chest X-Ray 12/06/23 14:29 IMPRESSION: Stable chest without acute abnormality. Head CT 12/06/23 14:29 IMPRESSION: Negative head CT. Laboratory Results WBC 11.89 10^3/uL (3.29-11.43) H 12/06/23 14:49 RBC 6.04 10^6/uL (3.85-5.65) H 12/06/23 14:49 Hgb 16.10 g/dL (11.27-16.99) 12/06/23 14:49 Hct 48.4 % (37-53) 12/06/23 14:49 MCV 80.1 fl (82-101) L 12/06/23 14:49 MCH 26.7 pg (27-33) L 12/06/23 14:49 MCHC 33.3 g/dL (30-55) 12/06/23 14:49 RDW 15.7 % (12.1-15.1) H 12/06/23 14:49 Plt Count 257 10^3/cmm (157-399) 12/06/23 14:49 MPV 8.9 fL (7.4-10.4) 12/06/23 14:49 Neut % (Auto) 64.7 % 12/06/23 14:49 Lymph % (Auto) 28.3 % 12/06/23 14:49 [place] % (Auto) 5.9 % 12/06/23 14:49 Eos % (Auto) 0.3 % 12/06/23 14:49 Baso % (Auto) 0.5 % 12/06/23 14:49 Neut # (Auto) 7.71 10^3/uL (1.8-7.7) H 12/06/23 14:49 Lymph # (Auto) 3.4 10^3/uL (0.8-4.8) 12/06/23 14:49 [place] # (Auto) 0.7 10^3/uL (0.2-0.9) 12/06/23 14:49 Eos # (Auto) 0.0 10^3/uL (0.0-0.8) 12/06/23 14:49 Baso # (Auto) 0.1 10^3/uL (0.0-0.1) 12/06/23 14:49 Nucleated RBC % (auto) 0 % 12/06/23 14:49 Nucleated RBCs # 0.0 /100WBC 12/06/23 14:49 Sodium 141 mmol/L (136-145) 12/06/23 14:49 Potassium 3.8 mmol/L (3.5-5.1) 12/06/23 14:49 Chloride 105 mmol/L (98-107) 12/06/23 14:49 Carbon Dioxide 21 mmol/L (22-29) L 12/06/23 14:49 Anion Gap 18.8 (5-19) 12/06/23 14:49 BUN 11 mg/dL (6-20) 12/06/23 14:49 Creatinine 1.0 mg/dL (0.7-1.2) 12/06/23 14:49 GFR Calculation 80.4 mL/min (90-130) L 12/06/23 14:49 Glucose 103 mg/dL (65-115) 12/06/23 14:49 Calculated Osmolality 292 mOsm/kg (285-295) 12/06/23 14:49 Calcium 9.3 mg/dL (8.5-10.5) 12/06/23 14:49 Total Bilirubin 0.4 mg/dL (0.15-1.2) 12/06/23 14:49 AST 18 U/L (0-40) 12/06/23 14:49 ALT 15 U/L (0-41) 12/06/23 14:49 Alkaline Phosphatase 71 U/L (40-130) 12/06/23 14:49 Troponin T Baseline 18 ng/L (0-15) H 12/06/23 14:49 Troponin T 120 Minute 15.66 ng/L (0-15) H 12/06/23 17:22 Delta Troponin T -2.34 ABS# (0-10) L 12/06/23 17:22 Total Protein 8.0 g/dL (6.6-8.7) 12/06/23 14:49 Albumin 4.8 g/dL (3.5-5.2) 12/06/23 14:49 Globulin 3.2 g/dL (1.3-4.6) 12/06/23 14:49 All radiology interpretation(s) finalized by discharge Discharge Plan Discharge Patient Disposition: Home Clinical Impression: Non-cardiac chest pain Condition: Stable Prescriptions: No Action losartan 50 mg tablet 50 mg PO DAILY diclofenac sodium 75 mg tablet,delayed release (DR/EC) 75 mg PO Q12H PRN (Reason: pain) Qty: 20 0RF prednisone 20 mg tablet 20 mg PO DAILY Qty: 15 0RF Rx Instructions: 60mg for 3 days 40mg for 2 days 20mg for 2 days gabapentin 300 mg capsule 300 mg PO TID Qty: 90 0RF Discharge Orders: Discharge ED (Routine); Ordered 12/06/23 Ordered By: Hermelinda Ornelas Referrals: Kevin Medina MD [Primary Care Provider] - Discharge Diet: Usual diet Discharge Activity: Increase activity as tolerated Patient Instructions: Noncardiac Chest Pain (ED) Activity Restrictions/Additional Instructions: Thank you for choosing [facility] for your healthcare needs today. Please realize this is an emergency room and that we are providing you with a medical screening exam and this may not be complete and all inclusive of all the testing and or work up that you may need to determine your ailment or severity of your illness. You have been screened and evaluated and felt safe for discharge. Health conditions do change or evolve sometimes and as such it is important that you follow up with your Primary Doctor to be re checked, 3-5 days is a general good time frame for follow up. 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
[2023-12-06 14:54] LABS: Basophils # 0.1 10^3/uL (0.0-0.1); Basophils % 0.5 %; Eosinophils % 0.3 %; Hematocrit 48.4 % (37-53); Lymphocytes # 3.4 10^3/uL (0.8-4.8); Lymphocytes % 28.3 %; Mean Corpuscular HGB Conc 33.3 g/dL (30-55); Mean Corpuscular Hemoglobin 26.7 pg (27-33); Mean Corpuscular Volume 80.1 fl (82-101); Mean Platelet Volume 8.9 fL (7.4-10.4); Monocytes # 0.7 10^3/uL (0.2-0.9); Monocytes % 5.9 %; Neutrophils # 7.71 10^3/uL (1.8-7.7); Neutrophils % 64.7 %; Nucleated Red Blood Cells % 0 %; Platelet Count 257 10^3/cmm (157-399); Red Blood Count 6.04 10^6/uL (3.85-5.65); Red Cell Distribution Width 15.7 % (12.1-15.1); White Blood Count 11.89 10^3/uL (3.29-11.43)
[2023-12-06 15:12] LABS: Troponin(5th) Baseline 18 ng/L (0-15)
--- NOTE | 2023-12-06 15:13 | ECG_ITS ---
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 Measurements Intervals [place] Rate: 84 P: 52 WV: 149 QRS: 68 QRSD: 100 T: 38 QT: 372 QTc: 440 Interpretive Statements SINUS RHYTHM WITH SINUS ARRHYTHMIA No previous ECG available for comparison Electronically Signed On 12-06-2023 20:00:21 CDT by Floridalma Trujillo M.D. [email or web address]/store/[id number]
[2023-12-06 15:15] LABS: Alanine Aminotransferase 15 U/L (0-41); Albumin Level 4.8 g/dL (3.5-5.2); Alkaline Phosphatase 71 U/L (40-130); Anion Gap 18.8 (5-19); Aspartate Amino Transferase 18 U/L (0-40); Blood Urea Nitrogen 11 mg/dL (6-20); Calcium 9.3 mg/dL (8.5-10.5); Carbon Dioxide 21 mmol/L (22-29); Chloride 105 mmol/L (98-107); Creatinine Clr Calc Pharmacy 91.1931; Globulin 3.2 g/dL (1.3-4.6); Glomerular Filtration Rate 80.4 mL/min (90-130); Glucose 103 mg/dL (65-115); Osmolality Calculated 292 mOsm/kg (285-295); Potassium 3.8 mmol/L (3.5-5.1); Sodium 141 mmol/L (136-145); Total Bilirubin 0.4 mg/dL (0.15-1.2)
[2023-12-06 16:25] VITALS: BP 128/81; PULSE 100; O2SAT 97
--- NOTE | 2023-12-06 16:30 | ECG_ITS ---
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 Measurements Intervals [place] Rate: 74 P: 5 CT: 136 QRS: 54 QRSD: 107 T: 28 QT: 376 QTc: 419 Interpretive Statements SINUS RHYTHM Compared to ECG 12/06/2023 15:13:29 Sinus arrhythmia no longer present Electronically Signed On 12-06-2023 20:00:43 CDT by Floridalma Trujillo M.D. [email or web address] [email or web address] [id number]
[2023-12-06 17:37] VITALS: BP 140/91; PULSE 91; O2SAT 98
[2023-12-06 17:52] LABS: Troponin 5 2HR 15.66 ng/L (0-15)
[2023-12-06 17:54] LABS: Troponin 5 2HR Delta -2.34 ABS# (0-10)
[2023-12-06 18:27] VITALS: BP 144/99; PULSE 88; RESP 17; O2SAT 96
== END 2023-12-06 18:28 | disposition home or self-care (01) ==
PROVIDERS: Emergency Provider Emergency Medicine; PCP Family Medicine
DX: R07.89 Other chest pain (principal); Z72.0 Tobacco use
CPT/HCPCS: 36415; 70450; 71045; 80053; 84484; 85025; 93005; 99285

== ENCOUNTER 2024-04-01 17:46 | Emergency (ER) | payer OTHER, SELFPAY ==
[2024-04-01] VITALS (7 sets, daily range): BP systolic 110–172; BP diastolic 65–98; PULSE 70–88; RESP 20; TEMP 36.7; O2SAT 95–99
--- NOTE | 2024-04-01 19:14 | CTR_ITS ---
PROCEDURE INFORMATION: Exam: CT Abdomen And Pelvis With Contrast Exam date and time: 04/01/2024 8:19 PM Age: 48 years old Clinical indication: Abdominal pain; Generalized; Additional info: Hematochezia, abd pain TECHNIQUE: Imaging protocol: Computed tomography of the abdomen and pelvis with contrast. Radiation optimization: All CT scans at this facility use at least one of these dose optimization techniques: automated exposure control; mA and/or kV adjustment per patient size (includes targeted exams where dose is matched to clinical indication); or iterative reconstruction. Contrast material: OMNI 350; Contrast volume: 100 ml; Contrast route: INTRAVENOUS (IV); COMPARISON: CR XR lumbar spine min 4V [id number] 07/09/2023 8:26 AM RADIATION DOSE METRICS: Total DLP (mGy-cm): 577.56 FINDINGS: Liver: Hepatic steatosis. Gallbladder and biliary ducts: Normal. No calcified stones. No ductal dilation. Pancreas: Normal. No ductal dilation. Spleen: Normal. No splenomegaly. Adrenal glands: Normal. No mass. Kidneys and ureters: Normal. No hydronephrosis. Stomach and bowel: Prominent fluid in stomach and small bowel may reflect a gastroenteritis. Appendix: No evidence of appendicitis. Intraperitoneal space: Unremarkable. No free air. No significant fluid collection. Vasculature: Unremarkable. No abdominal aortic aneurysm. Lymph nodes: Unremarkable. No enlarged lymph nodes. Urinary bladder: Unremarkable as visualized. Reproductive: Unremarkable as visualized. Bones/joints: Unremarkable. No acute fracture. Soft tissues: Unremarkable. CT/CT abdomen pelvis w con* [id number] IMPRESSION: 1. Prominent fluid in stomach and small bowel may reflect a gastroenteritis. 2. Hepatic steatosis.
--- NOTE | 2024-04-01 19:26 | ED_ITS ---
HPI - Abdominal Pain 2 General: Chief Complaint: Abdominal Pain Stated Complaint: Bleeding when using bathroom, bleeding right now Time Seen by Provider: 04/01/24 18:43 Source: patient Mode of arrival: ambulatory Limitations: no limitations History of Present Illness: Patient is a 48-year-old male presents the emergency department complaining of 1 week of abdominal pain with hematochezia beginning a few hours prior to arrival. Patient states he noticed refugio bright red blood in the toilet after defecation, he has never had this before. Denies any rectal pain. States he had this abdominal pain last week saw primary care was prescribed something for diarrhea and sent home. States the pain has persisted, and it feels like his abdomen is hard. At this time notes that the pain is not so bad, does not report any specific alleviating or exacerbating factors. He is denying any fever, chills, urinary symptoms, chest pain or shortness of breath. He states that he is set to have back surgery soon. Denying any incontinence with bowel. MD elicited complaint: abdominal pain Onset (ago): week(s) Pain Consistency: constant Location: Diffuse Radiation: none Migration to: no migration Exacerbating factors: nothing Relieving factors: nothing Associated Symptoms: Reports hematochezia; Denies bloating, change in stool character, chills, constipation, diarrhea, dysuria, fever(s), nausea and vomiting Related Data Home Medications Medication Instructions Recorded Confirmed losartan 50 mg tablet 50 mg PO DAILY 07/09/23 10/29/23 Previous Rx's Medication Instructions Recorded diclofenac sodium 75 mg 75 mg PO Q12H PRN pain #20 tabs 07/09/23 tablet,delayed release prednisone 20 mg tablet 20 mg PO DAILY #15 tabs 07/09/23 gabapentin 300 mg capsule 300 mg PO TID pain #90 caps 08/13/23 ciprofloxacin HCl 500 mg tablet 500 mg PO BID 10 days #20 tabs 04/01/24 (Cipro) metronidazole 500 mg tablet 500 mg PO BID 7 days #14 tabs 04/01/24 Allergies Allergy/AdvReac Type Severity Reaction Status Date / Time amoxicillin Allergy ALGY-Hives Verified 10/29/23 13:06 Penicillins Allergy ALGY-Hives Verified 10/29/23 13:06 Review of Systems 2 General: Reports: 10 or more systems reviewed and unremarkable except in HPI and below Const: Denies: fever(s), chills, change in appetite, change in weight or diaphoresis ENMT: Denies: throat pain or hoarseness Card: Denies: chest pain, palpitations or lightheadedness Resp: Denies: dyspnea, productive cough or wheezing GI: Reports: abdominal pain and hematochezia; Denies: nausea, vomiting, diarrhea, constipation, bloating or change in stool character : Denies: flank pain, difficulty urinating, dysuria, urinary frequency or urinary urgency Musc: Denies: neck pain or back pain Skin/Breast: Denies: rash or new lesions Neuro: Denies: headache(s) or dizziness PFSH ED 2 PFSH: Medical History No pertinent past medical history Social History Smoking and tobacco/nicotine status: current every day tobacco/nicotine user Physical Exam 2 Const: COMMON NORMALS: no acute distress, average body habitus, patient oriented x3, no limitations, healthy appearing, alert and well nourished G ENERAL APPEARANCE: cooperative and comfortable ORIENTATION/CONSCIOUSNESS: Yes awake HENMT: COMMON NORMALS: normocephalic, atraumatic, hearing grossly normal bilaterally, external ears normal, Normal external nose present, Normal nasal mucous membranes and turbinates present and moist oral mucous membranes HEAD & SCALP: normocephalic and atraumatic NOSE: Normal external nose present and Normal nasal mucous membranes and turbinates present EXTERNAL EAR: Yes external ears normal Eye: COMMON NORMALS: Equal, round and reactive pupils present, EOMs intact bilaterally, conjunctivae normal and normal visual ray by confrontation C ONJUNCTIVA: Yes conjunctivae normal PUPIL: Yes Equal, round and reactive pupils present Neck/C-Spine: COMMON NORMALS: full ROM, supple, no meningeal signs and no JVD Resp: COMMON NORMALS: normal respiratory effort, No retractions, No use of accessory muscles and clear to auscultation bilaterally AUSCULTATION: clear to auscultation bilaterally, no crackles, no rales, no rhonchi and no wheezes Cardio: COMMON NORMALS: no JVD, regular rate, regular rhythm, S1 normal heart sound present, S2 normal heart sound present, No gallops present (Cardio), No clicks present (Cardio), No murmurs present (Cardio), No rub (Cardio) and Peripheral pulses 2+ throughout RATE: regular rate RHYTHM: regular rhythm HEART SOUNDS: S1 normal heart sound present and S2 normal heart sound present PERIPHERAL PULSES: Peripheral pulses 2+ throughout GI: COMMON NORMALS: Normal to inspection, nondistended, normoactive bowel sounds present, Soft to palpation, No hepatosplenomegaly present and no masses AUSCULTATION: Yes Hyperactive bowel sounds present PALPATION: Yes Soft to palpation, Yes Tenderness to palpation present (GI) (Diffuse), No Guarding due to palpation present (GI), No Rigid due to palpation and Yes No hepatosplenomegaly present RECTAL EXAM: Yes normal sphincter tone, Yes heme positive stool and No tenderness OTHER: No hemorrhoids, there is refugio blood present surrounding anus : COMMON NORMALS: Yes no CVA tenderness BLADDER/KIDNEY EXAM: Yes no CVA tenderness Back/Pelvis: COMMON NORMALS: no CVA tenderness Extremity: COMMON NORMALS: normal to inspection and full ROM Neuro: COMMON NORMALS: patient oriented x3, moves all extremities, no focal motor deficits and no sensory deficits noted SENSORIUM/ORIENTATION: Yes alert MENINGEAL SIGNS: Yes no meningeal signs Psych: COMMON NORMALS: mental status grossly normal, cooperative and speech normal SPEECH: Yes normal speech Skin: COMMON NORMALS: no rashes or lesions noted GENERAL SKIN EXAM: no rashes or lesions noted Course 2 Vital Signs: Vital signs: Vital Signs Temperature 98.1 F 04/01/24 17:56 Pulse Rate 74 04/01/24 22:17 Respiratory Rate 20 H 04/01/24 17:56 Blood Pressure 110/71 04/01/24 22:17 Pulse Oximetry 95 04/01/24 22:17 Oxygen Delivery Me thod Room Air 04/01/24 20:00 MDM - Abdominal Pain Medical Decision Making Patient presented with acute onset hematochezia today, though has been having abdominal pain for the past week. Vitals were stable here, physical examination found him to be stool guaiac positive, there was refugio blood noted perianally, no evidence of hemorrhoid. His CBC was normal including normal blood count, no lab findings consistent with infection. His metabolic panel was normal, C. difficile PCR was negative, and urinalysis negative. Other stool cultures pending at this time. He did not have any real tenderness to palpation of his abdomen, though he did have some hyperactive bowel sounds. CT did show fluid in the stomach and small bowel reflecting potentially gastroenteritis, which favors patient's presentation. For this, we will treat with Cipro and Flagyl and have him do GI soft diet with close follow-up outpatient. Reasons to return discussed. Patient endorses understanding at this time, and stool cultures are pending. Lab Data 04/01/24 19:44 04/01/24 19:44 Labs/Radiology: Radiology Impressions Abdomen/Pelvis CT 04/01/24 19:14 IMPRESSION: 1. Prominent fluid in stomach and small bowel may reflect a gastroenteritis. 2. Hepatic steatosis. Laboratory Results WBC 10.97 10^3/uL (3.29-11.43) 04/01/24 19:44 RBC 5.91 10^6/uL (3.85-5.65) H 04/01/24 19:44 Hgb 15.60 g/dL (11.27-16.99) 04/01/24 19:44 Hct 48.9 % (37-53) 04/01/24 19:44 MCV 82.7 fl (82-101) 04/01/24 19:44 MCH 26.4 pg (27-33) L 04/01/24 19:44 MCHC 31.9 g/dL (30-55) 04/01/24 19:44 RDW 15.6 % (12.1-15.1) H 04/01/24 19:44 Plt Count 311 10^3/cmm (157-399) 04/01/24 19:44 MPV 9.3 fL (7.4-10.4) 04/01/24 19:44 Neut % (Auto) 54.9 % 04/01/24 19:44 Lymph % (Auto) 35.3 % 04/01/24 19:44 [place] % (Auto) 7.9 % 04/01/24 19:44 Eos % (Auto) 0.7 % 04/01/24 19:44 Baso % (Auto) 0.7 % 04/01/24 19:44 Neut # (Auto) 6.01 10^3/uL (1.8-7.7) 04/01/24 19:44 Lymph # (Auto) 3.9 10^3/uL (0.8-4.8) 04/01/24 19:44 [place] # (Auto) 0.9 10^3/uL (0.2-0.9) 04/01/24 19:44 Eos # (Auto) 0.1 10^3/uL (0.0-0.8) 04/01/24 19:44 Baso # (Auto) 0.1 10^3/uL (0.0-0.1) 04/01/24 19:44 Nucleated RBC % (auto) 0 % 04/01/24 19:44 Nucleated RBCs # 0.0 /100WBC 04/01/24 19:44 Sodium 139 mmol/L (136-145) 04/01/24 19:44 Potassium 4.8 mmol/L (3.5-5.1) 04/01/24 19:44 Chloride 103 mmol/L (98-107) 04/01/24 19:44 Carbon Dioxide 24 mmol/L (22-29) 04/01/24 19:44 Anion Gap 16.8 (5-19) 04/01/24 19:44 BUN 15 mg/dL (6-20) 04/01/24 19:44 Creatinine 0.9 mg/dL (0.7-1.2) 04/01/24 19:44 GFR Calculation 90.8 mL/min (90-130) 04/01/24 19:44 Glucose 88 mg/dL (65-115) 04/01/24 19:44 Calculated Osmolality 288 mOsm/kg (285-295) 04/01/24 19:44 Calcium 9.9 mg/dL (8.5-10.5) 04/01/24 19:44 Total Bilirubin 0.2 mg/dL (0.15-1.2) 04/01/24 19:44 AST 19 U/L (0-40) 04/01/24 19:44 ALT 17 U/L (0-41) 04/01/24 19:44 Alkaline Phosphatase 70 U/L (40-130) 04/01/24 19:44 Total Protein 7.7 g/dL (6.6-8.7) 04/01/24 19:44 Albumin 4.8 g/dL (3.5-5.2) 04/01/24 19:44 Globulin 2.9 g/dL (1.3-4.6) 04/01/24 19:44 Lipase 27 U/L (13-60) 04/01/24 19:44 Urine Color Yellow (Yellow) 04/01/24 19:24 Urine Appearance Clear (CLEAR) 04/01/24 19:24 Urine pH 7.5 (5-7) 04/01/24 19:24 Ur Specific [place] 1.003 (1.005-1.030) L 04/01/24 19:24 Urine Protein Negative (Negative) 04/01/24 19:24 Urine Glucose (UA) Negative (Normal) 04/01/24 19:24 Urine Ketones Negative (Negative) 04/01/24 19:24 Urine Blood Negative (Negative) 04/01/24 19:24 Urine Nitrate Negative (Negative) 04/01/24 19:24 Urine Bilirubin Negative (Negative) 04/01/24 19:24 Urine Urobilinogen 0.2 mg/dL (Negative) 04/01/24 19:24 Ur Leukocyte Esterase Negative (Negative) 04/01/24 19:24 Urine RBC 0-2 /hpf (0-2) 04/01/24 19:24 Urine WBC 0-5 /hpf (0-5) 04/01/24 19:24 Ur Squamous Epith Cells 0-5 /hpf (0-5) 04/01/24 19:24 Amorphous Sediment Not Reportable 04/01/24 19:24 Urine Bacteria None seen /hpf (NONE) 04/01/24 19:24 Hyaline Casts 0-4 /lpf H 04/01/24 19:24 C. difficile (PCR) Negative (Negative) 04/01/24 19:24 All radiology interpretation(s) finalized by discharge Discharge Plan Discharge Patient Disposition: Home Clinical Impression: Gastroenteritis Condition: Stable Prescriptions: New metronidazole 500 mg tablet 500 mg PO BID 7 Days Qty: 14 0RF ciprofloxacin HCl [Cipro] 500 mg tablet 500 mg PO BID 10 Days Qty: 20 0RF No Action losartan 50 mg tablet 50 mg PO DAILY diclofenac sodium 75 mg tablet,delayed release (DR/EC) 75 mg PO Q12H PRN (Reason: pain) Qty: 20 0RF prednisone 20 mg tablet 20 mg PO DAILY Qty: 15 0RF Rx Instructions: 60mg for 3 days 40mg for 2 days 20mg for 2 days gabapentin 300 mg capsule 300 mg PO TID Qty: 90 0RF Discharge Orders: Discharge ED (Routine); Ordered 04/01/24 Ordered By: López Gregg Referrals: Kevin Medina MD [Primary Care Provider] - Patient Instructions: Gastroenteritis (ED) Activity Restrictions/Additional Instructions: Take Cipro and Flagyl as prescribed. GI soft diet. Drink plenty of fluids. Follow-up closely with primary care. Return with any new or worsening symptoms. Coding Level of Care Code ED Transportation Services Representative for Dariela Alvarez
[2024-04-01 19:51] LABS: Bilirubin Urine Negative (Negative); Blood Urine Negative (Negative); Glucose Urine UA Negative (Normal); Ketones Urine Negative (Negative); Leukocyte Esterase Urine Negative (Negative); Nitrate Urine Negative (Negative); Protein Urine Negative (Negative); Specific Gravity, Urine 1.003 (1.005-1.030); Urine Appearance Clear (CLEAR); Urine Color Yellow (Yellow); Urobilinogen Urine 0.2 mg/dL (Negative); pH Urine 7.5 (5-7)
[2024-04-01 19:53] LABS: Add Urine Microscopic? YES; Bacteria Urine None Seen /hpf; Hyaline Casts Urine 0-4 /lpf; RBC Urine 0-2 /hpf (0-2); Squamous Epithelial Cell Urine 0-5 /hpf (0-5); WBC Urine 0-5 /hpf (0-5)
[2024-04-01] MEDS: iohexol 350 mg/mL 500 mL Btl (per mL) IV (20:21)
[2024-04-01 20:25] LABS: Basophils # 0.1 10^3/uL (0.0-0.1); Basophils % 0.7 %; Eosinophils # 0.1 10^3/uL (0.0-0.8); Eosinophils % 0.7 %; Hematocrit 48.9 % (37-53); Lymphocytes # 3.9 10^3/uL (0.8-4.8); Lymphocytes % 35.3 %; Mean Corpuscular HGB Conc 31.9 g/dL (30-55); Mean Corpuscular Hemoglobin 26.4 pg (27-33); Mean Corpuscular Volume 82.7 fl (82-101); Mean Platelet Volume 9.3 fL (7.4-10.4); Monocytes # 0.9 10^3/uL (0.2-0.9); Monocytes % 7.9 %; Neutrophils # 6.01 10^3/uL (1.8-7.7); Neutrophils % 54.9 %; Nucleated Red Blood Cells % 0 %; Platelet Count 311 10^3/cmm (157-399); Red Blood Count 5.91 10^6/uL (3.85-5.65); Red Cell Distribution Width 15.6 % (12.1-15.1); White Blood Count 10.97 10^3/uL (3.29-11.43)
[2024-04-01 20:40] LABS: C.Diff PCR (Lab) NEGATIVE (Negative)
[2024-04-01 20:41] LABS: Alanine Aminotransferase 17 U/L (0-41); Albumin Level 4.8 g/dL (3.5-5.2); Alkaline Phosphatase 70 U/L (40-130); Anion Gap 16.8 (5-19); Aspartate Amino Transferase 19 U/L (0-40); Blood Urea Nitrogen 15 mg/dL (6-20); Calcium 9.9 mg/dL (8.5-10.5); Carbon Dioxide 24 mmol/L (22-29); Chloride 103 mmol/L (98-107); Globulin 2.9 g/dL (1.3-4.6); Glomerular Filtration Rate 90.8 mL/min (90-130); Glucose 88 mg/dL (65-115); Lipase 27 U/L (13-60); Osmolality Calculated 288 mOsm/kg (285-295); Potassium 4.8 mmol/L (3.5-5.1); Sodium 139 mmol/L (136-145); Total Bilirubin 0.2 mg/dL (0.15-1.2); Total Protein 7.7 g/dL (6.6-8.7)
[2024-04-01] MEDS: ciprofloxacin 500 mg Tablet PO (22:05)
[2024-04-01] MEDS: metroNIDAZOLE 500 MG Tablet PO (22:05)
== END 2024-04-01 22:10 | disposition home or self-care (01) ==
PROVIDERS: Emergency Medicine; Emergency Provider Physician Assistant; PCP Family Medicine
DX: K52.9 Noninfective gastroenteritis and colitis, unspecified (principal); Z72.0 Tobacco use
CPT/HCPCS: 74177; 80053; 81001; 83690; 85025; 87045; 87427; 87449; 87493; 99285